=== PATIENT | female | born 1995 | race African-American/Black ===

== ENCOUNTER 2023-01-25 19:17 | Emergency (ER) | payer OTHER ==
[2023-01-25 19:32] VITALS: BP 119/83; PULSE 62; RESP 18; TEMP 98.2; BMI 38.9
[2023-01-25 23:12] LABS: EPI CELLS >36 /uL (0-25.1); HYALINE CASTS 0 /uL (0-3.1); PH,URINE 7.5 (5.0-8.0); URINE APPEARANCE CLEAR; URINE BACTERIA 251 /uL (0-1359); URINE BILIRUBIN NEGATIVE (NEGATIVE); URINE COLOR YELLOW; URINE GLUCOSE (UA) NEGATIVE (NEGATIVE); URINE KETONE TRACE (NEGATIVE); URINE LEUK ESTERASE 1+ (NEGATIVE); URINE NITRITE NEGATIVE (NEGATIVE); URINE PROTEIN NEGATIVE (NEGATIVE); URINE RBC 11 /uL (0-23.9); URINE UROBILINOGEN 0.2 mg/dL (0.2-1.0); URINE WBC 23 /uL (0-25.8)
== END 2023-01-26 01:50 | disposition home or self-care (01) ==
LOC: JER 19:17
DX: N93.9 Abnormal uterine and vaginal bleeding, unspecified (principal); R10.9 Unspecified abdominal pain
CPT/HCPCS: 76830-TC; 81003; 84703; 87086; 87186; 99284-25